=== PATIENT | female | born 1960 ===

== ENCOUNTER → 2021-11-08 | Outpatient (CLI) | payer OTHER ==
[~2021-11-08] MED LIST: DICLOFONO2.5 GM; DILT180 PO; DULO60 PO; LAMO100 PO; LORA.5 PO; Neurontin300 MG PO; TRAZ50 PO
== END | disposition home or self-care (01) ==
LOC: LAB 15:10 → LAB SHORT 15:10
DX: D23.5 Other benign neoplasm of skin of trunk (principal)
CPT/HCPCS: 88305